=== PATIENT | female | born 1955 | race Caucasian/White ===

== ENCOUNTER 2024-11-26 15:24 | Emergency (ER) | payer OTHER, BC, SELFPAY ==
--- NOTE | 2024-11-26 15:30 | RT.EKG_ITS ---
APPROVED REPORT Exam: Resting ECG Reason for Exam: near syncope Patient Location: E HR:77 bpm ECG Measurements Heart Rate 77 AXIS AK 186 P 53 QRSd 89 QRS 72 QT 405 T 60 QTc 460 Conclusion Sinus rhythm...normal P axis, V-rate 60- 99 ST elevation, consider inferior injury...ST >0.08mV, II III aVF
[2024-11-26 15:37] VITALS: BP 80/50; PULSE 60; RESP 12; O2SAT 96
--- NOTE | 2024-11-26 16:00 | DI.RAD_ITS ---
Exam(s) XR WRIST LT COMPLETE EXAM: XR WRIST LT COMPLETE CLINICAL HISTORY: pain s/p fall. TECHNIQUE: 2D digital imaging was performed. Three views. COMPARISON: No exams were available for comparison FINDINGS: BONES: Comminuted fracture of the distal radius. Some impaction and dorsal angulation. Probable extension to the articular surface. Nondisplaced fracture of the distal ulna. No bony destructive lesion is seen. JOINTS: The carpal bones are normally aligned. Advanced degenerative changes of the first carpometacarpal joint. SOFT TISSUE: Swelling. IMPRESSION: Comminuted distal radial fracture and distal ulnar fracture. DATA REPOSITORY: RADIATION DOSE DELIVERED:
--- NOTE | 2024-11-26 16:00 | DI.RAD_ITS ---
Exam(s) XR SHOULDER LT COMPLETE 2+V EXAM: XR SHOULDER LT COMPLETE 2+V CLINICAL HISTORY: pain s/p fall. TECHNIQUE: 2D digital imaging was performed. Three views. COMPARISON: No exams were available for comparison FINDINGS: BONES: No acute fracture is present. No bony destructive lesion is seen. JOINTS: No dislocation present.Mild degenerative changes of the acromioclavicular joint. SOFT TISSUE: Normal. IMPRESSION: No acute abnormality. DATA REPOSITORY: RADIATION DOSE DELIVERED:
--- NOTE | 2024-11-26 16:07 | W.ED.GENAD ---
Discharge Plan Disposition Patient Disposition: Home Condition: Stable Discharge Details Clinical Impression: Left wrist fracture, Contusion of shoulder, left Primary Care Provider: Ewa,Local ED Provider: Leodan Lee Home Meds and New Rx's Prescriptions: Continued omeprazole 40 mg capsule,delayed release(DR/EC) 40 mg PO DAILY escitalopram oxalate 10 mg tablet 10 mg PO DAILY lisinopril 20 mg tablet 20 mg PO DAILY hydrochlorothiazide 25 mg tablet 25 mg PO DAILY levothyroxine 112 mcg capsule 112 mcg PO DAILY bupropion HCl 300 mg tablet extended release 24 hr 300 mg PO QAM fluorometholone 0.1 % drops,suspension 1 drp ophthalmic (eye) Q6H fluticasone propionate 50 mcg/actuation spray,suspension 1 spray intranasal DAILY Rx Instructions: administer into each nostril folic acid 1 mg tablet 1 mg PO DAILY methotrexate 2.5 mg/mL solution 2.5 mg PO QWEEK multivitamin [Multiple Vitamins] Tablet 1 tab PO DAILY cholecalciferol (vitamin D3) 125 mcg (5,000 unit) capsule 125 mcg PO DAILY magnesium chloride 64 mg tablet,delayed release (DR/EC) 64 mg PO DAILY oxybutynin chloride 5 mg/5 mL syrup 5 mg PO DAILY Discharge Instructions Additional Instructions: You have a fracture dislocation that was partially reduced. Call orthopedics tomorrow to arrange for a follow-up appointment. You can take 1000 mg of acetaminophen and 600 mg of ibuprofen every 6 hours as needed. If needed you can take the morphine. if you feel more ill, or have severe worsening pain return to the emergency department for reevaluation. Referrals: Donato Blanton MD [ [facility] STAFF PHYSICIAN, Orthopaedic Surgical] [facility] Mode of arrival: ambulatory. Date/Time Provider Initiated Documentation: 11/26/24 15:40. Limitations to Documentation: no limitations. Information obtained by: patient. History of Present Illness 69 year old F presents to the emergency department with the chief complaint of left wrist pain s/p fall, described as moderate, Quality is described as aching, Patient started experiencing this hour(s) (1) and it has been constant. No relieving factors improve symptom(s), No exacerbating factors reported . Patient notes denies chest pain and shortness of breath. Patient did receive the following treatments prior to arrival, none Related Data Home Medications ?Medication ?Instructions ?Recorded ?Confirmed bupropion HCl 300 mg 24 hr tablet, 300 mg PO QAM 07/31/24 07/31/24 extended release cholecalciferol (vitamin D3) 125 125 mcg PO DAILY 07/31/24 07/31/24 mcg (5,000 unit) capsule escitalopram oxalate 10 mg tablet 10 mg PO DAILY 07/31/24 07/31/24 fluorometholone 0.1 % eye 1 drp ophthalmic (eye) Q6H 07/31/24 07/31/24 drops,suspension fluticasone propionate 50 1 spray intranasal DAILY 07/31/24 07/31/24 mcg/actuation nasal spray,suspension folic acid 1 mg tablet 1 mg PO DAILY 07/31/24 07/31/24 hydrochlorothiazide 25 mg tablet 25 mg PO DAILY 07/31/24 07/31/24 levothyroxine 112 mcg capsule 112 mcg PO DAILY 07/31/24 07/31/24 lisinopril 20 mg tablet 20 mg PO DAILY 07/31/24 07/31/24 magnesium chloride 64 mg 64 mg PO DAILY 07/31/24 07/31/24 (magnesium chloride) tablet,delayed release methotrexate 2.5 mg/mL oral 2.5 mg PO QWEEK 07/31/24 07/31/24 solution multivitamin (Multiple Vitamins 1 tab PO DAILY 07/31/24 07/31/24 tablet) omeprazole 40 mg capsule,delayed 40 mg PO DAILY 07/31/24 07/31/24 release oxybutynin chloride 5 mg/5 mL oral 5 mg PO DAILY 07/31/24 07/31/24 syrup Allergies Allergy/AdvReac Type Severity Reaction Status Date / Time amoxicillin (From Augmentin) Allergy Mild Unknown Verified 07/31/24 12:22 clavulanic acid (From Allergy Mild Unknown Verified 07/31/24 12:22 Augmentin) fluconazole (From Diflucan) Allergy Swelling/Ed Verified 07/31/24 12:22 stacey Sulfa (Sulfonamide Allergy Swelling/Ed Verified 07/31/24 12:22 Antibiotics) stacey General Stated Complaint: Orthopedic NICK: 3 Review of Systems All systems reviewed & are unremarkable except as noted in HPI and below Constitutional Constitutional: Denies chills, Denies fever(s) and Denies weakness Cardiovascular Cardiovascular: Denies chest pain and Denies dyspnea Respiratory Respiratory: Denies dyspnea Gastrointestinal Gastrointestinal: Denies abdominal pain and Denies vomiting Neurologic Neurologic: Denies weakness Exam Const Orientation: alert [facility] Head: normal to inspection Ears: external ears normal General nose exam: external nose normal Mouth: moist mucous membranes Eyes General: appearance normal, both eyes and all related structures Neck Neck: normal visual inspection Resp Effort & Inspection: normal respiratory effort and able to speak in complete sentences Cardio Rate: regular rate Skin General skin exam: no rashes or lesions noted Neuro General: patient alert and patient oriented x3 Extrem General: capillary refill normal Psych Mental Status: mental status grossly normal Course Vital Signs Vital signs: Vital Signs Pulse 60 11/26/24 15:37 Respiratory Rate 12 11/26/24 15:37 Blood Pressure 80/50 L 11/26/24 15:37 Pulse Oximetry 96 11/26/24 15:37 Pulse 60 11/26/24 15:37 Respiratory Rate 12 11/26/24 15:37 Blood Pressure 80/50 L 11/26/24 15:37 Blood Pressure Position Sitting 11/26/24 15:37 Pulse Oximetry 96 11/26/24 15:37 Oxygen Delivery Method Room Air 11/26/24 15:37 Oxygen Flow Rate 0 11/26/24 15:37 Procedure Fracture Reduction Fracture #1: Patient Consented: Verbally Side: left Fracture Reduction Location: ulna Analgesia: hematoma block (10cc 1% lidocaine) Technique: direct manipulation and traction/counter-traction Post Reduction X-rays Demonstrate: acceptable reduction Post-Reduction Neuro Exam: intact Post-Reduction Vascular Exam: intact Splint Applied: Yes Patient Tolerated Procedure: well Medical Decision Making 69-year-old female with a history of uveitis, hypertension who comes in 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 Denies hitting her head or loss of consciousness and denies any preceding symptoms in the fall. Patient has left wrist and left shoulder pain. Denies any headache, neck pain, back pain, chest or abdomen pain. She has a deformity of the left wrist. She is able to move her fingers with intact sensation and cap refill. She has no tenderness in the forearm, elbow or distal mid humerus. She has tenderness over the anterior shoulder. There is no visible or palpable deformity of the shoulder. No midline C-spine tenderness no signs of trauma to the head, GCS of 15. Her blood pressure on my exam is 118/72, she did have initial blood pressure of 80 which could have been vasovagal from her pain. Will monitor and obtain x-rays of her left shoulder and left wrist. Patient has a fracture dislocation. I placed a hematoma block using 10 cc of 1% lidocaine which she tolerated without complications. Skin was cleaned with chlorhexidine prior to inserting the needle. She had marked reduction in her pain with this. I was able to put her fingers in a fingertrap and apply weight for traction and felt it was more aligned so was placed in a sugar-tong splint. Intact CSM T's. Postreduction x-ray shows improved reduction but still has some dorsal displacement. She is stable for discharge and will follow-up with orthopedics, return precautions given. Differential Diagnosis Differential Diagnosis: Fracture, sprain, contusion ECG Data Attestation: I personally reviewed and interpreted this ECG (s) as follows: Prior ECG tracings: not available for review Interpretation: Sinus rhythm, rate of 77, [place] 186, no STEMI PFSH All Active Problems (Updated 11/26/24 @ 19:17 by Leodan Lee MD) Contusion of shoulder, left (Acute) Left wrist fracture (Acute) Social History Smoking risk assessment performed?: No
[2024-11-26] MEDS: Normal Saline 1,000 ML 1000 ML IV (16:37)
[2024-11-26] MEDS: HYDROmorphone 2 MG/ML SYR 1 MG IVP (16:42)
[2024-11-26] MEDS: HYDROmorphone 2 MG/ML SYR (17:55)
--- NOTE | 2024-11-26 18:00 | DI.RAD_ITS ---
Exam(s) XR WRIST LT LIMITED EXAM: XR WRIST LT LIMITED INDICATION: s/p closed reduction attempt. COMPARISON: CR XR WRIST LT COMPLETE from 11/26/2024 TECHNIQUE: 2D digital imaging was performed. Two views. FINDINGS: A cast has been placed which somewhat obscures the underlying bony detail. There has been some correction of the previously noted dorsal angulation of the comminuted distal radial fracture. The ulnar styloid fractures unchanged. Carpal alignment remains normal. DATA REPOSITORY: RADIATION DOSE DELIVERED:
[2024-11-26] MEDS: MORPHine IR 15 MG TAB, 4 TABS/BTL PO (19:46)
== END 2024-11-26 20:03 | disposition home or self-care (01) ==
PROVIDERS: Emergency Provider Emergency Medicine
DX: S62.102A Fracture of unspecified carpal bone, left wrist, initial encounter for closed fracture (principal); S40.012A Contusion of left shoulder, initial encounter; W03.XXXA Other fall on same level due to collision with another person, initial encounter
CPT/HCPCS: 25535; 36415; 93005; 96360; 99284; 73030; 73100; 73110; 93010; J1171

== ENCOUNTER 2024-12-02 15:43 | Outpatient (CLI) | payer OTHER, BC, SELFPAY ==
--- NOTE | 2024-12-02 13:00 | DI.RAD_ITS ---
Exam(s) XR WRIST LT LIMITED EXAM: XR WRIST LT LIMITED CLINICAL HISTORY: LEFT WRIST FX. TECHNIQUE: 2D digital imaging was performed of the left wrist. Two images were obtained. Scaphoid, PA, oblique and lateral views were obtained. COMPARISON: CR XR WRIST LT LIMITED from 11/26/2024 CR XR WRIST LT COMPLETE from 11/26/2024 FINDINGS: BONES: There has been no significant change in alignment of the distal radial and ulnar fractures. No bony destructive lesion is seen. JOINTS: The carpal bones are normally aligned. SOFT TISSUE: The patient's wrist is in a cast. IMPRESSION: Stable distal left ulnar and radial fractures. DATA REPOSITORY: RADIATION DOSE DELIVERED:
== END 2024-12-02 15:44 | disposition home or self-care (01) ==
LOC: DIORS 15:43
PROVIDERS: Visit Provider Student in an Organized Health Care Education/Training Program
DX: S62.102A Fracture of unspecified carpal bone, left wrist, initial encounter for closed fracture (principal)
CPT/HCPCS: 73100

== ENCOUNTER 2024-12-03 12:16 | Day surgery (SDC) | payer OTHER, BC, SELFPAY ==
[2024-12-03] VITALS (12 sets, daily range): BP systolic 114–129; BP diastolic 65–104; PULSE 57–77; RESP 12–17; TEMP 36.4–37; O2SAT 80–100; BMI 25.3
[2024-12-03] MEDS: Lactated Ringers 1,000 ML 80 ML IV (13:02)
[2024-12-03] MEDS: Acetaminophen 500 MG TAB 1000 MG PO (13:04)
[2024-12-03] MEDS: Celecoxib 200 MG CAP 400 MG PO (13:04)
--- NOTE | 2024-12-03 13:12 | W.ANESPRE ---
General Info Date of Service Date Performed: 12/03/24 Height: 5 ft 4 in Weight: 66.9 kg Body Mass Index (BMI): 25.3 Surgical Procedure: Operation Date: 12/03/24 15:25 Proposed Procedure Side Surgeon p Wrist ORIF Distal Radius Left Raymond Wong MD Meds Allergies and Home Medications Allergies Allergy/AdvReac Type Severity Reaction Status Date / Time amoxicillin (From Augmentin) Allergy Mild Unknown Verified 12/03/24 12:36 clavulanic acid (From Allergy Mild Unknown Verified 12/03/24 12:36 Augmentin) fluconazole (From Diflucan) Allergy Swelling/Ed Verified 12/03/24 12:36 stacey Sulfa (Sulfonamide Allergy Swelling/Ed Verified 12/03/24 12:36 Antibiotics) stacey Home Medication ?Medication ?Instructions ?Recorded bupropion HCl 300 mg 24 hr tablet, 300 mg PO QAM 07/31/24 extended release cholecalciferol (vitamin D3) 125 125 mcg PO DAILY 07/31/24 mcg (5,000 unit) capsule escitalopram oxalate 10 mg tablet 10 mg PO DAILY 07/31/24 fluorometholone 0.1 % eye 1 drp ophthalmic (eye) Q6H 07/31/24 drops,suspension fluticasone propionate 50 1 spray intranasal DAILY 07/31/24 mcg/actuation nasal spray,suspension folic acid 1 mg tablet 1 mg PO DAILY 07/31/24 hydrochlorothiazide 25 mg tablet 25 mg PO DAILY 07/31/24 levothyroxine 112 mcg capsule 112 mcg PO DAILY 07/31/24 lisinopril 20 mg tablet 20 mg PO DAILY 07/31/24 magnesium chloride 64 mg 64 mg PO DAILY 07/31/24 (magnesium chloride) tablet,delayed release methotrexate 2.5 mg/mL oral 2.5 mg PO QWEEK 07/31/24 solution multivitamin (Multiple Vitamins 1 tab PO DAILY 07/31/24 tablet) omeprazole 40 mg capsule,delayed 40 mg PO DAILY 07/31/24 release calcium 600 mg capsule 600 mg PO DAILY 12/02/24 melatonin 3 mg tablet 1.5 mg PO HS PRN 12/02/24 Current Visit Medications: Current Medications Generic Name Dose Route Start Last Admin Trade Name Freq PRN Reason Stop Dose Admin Acetaminophen 1,000 mg 12/03/24 06:00 12/03/24 13:04 Acetaminophen 500 Mg Tab PO 12/03/24 23:59 1,000 mg PREOP GEMINI Administration Celecoxib 400 mg 12/03/24 06:00 12/03/24 13:04 Celecoxib 200 Mg Cap PO 12/03/24 23:59 400 mg PREOP GEMINI Administration Ringer's Solution 1,000 mls @ 80 mls/hr 12/03/24 06:00 12/03/24 13:02 IV 12/03/24 23:59 80 mls/hr INFUSION GEMINI Administration Cefazolin Sodium/Dextrose 2 gm in 50 mls @ 100 mls/hr 12/03/24 06:00 Ancef Duplex IVPB 12/03/24 23:59 PREOP GEMINI Tranexamic Acid/Sodium Chloride 1,000 mg in 100 mls @ 600 mls/hr 12/03/24 06:00 IVPB 12/03/24 23:59 PREOP GEMINI IV Miscellaneous Supplies 1 each 12/03/24 06:00 Iv Access IV 12/03/24 23:59 DIRECTED GEMINI Sodium Chloride 0 ml 12/03/24 06:00 Normal Saline Flush 10 Ml Syr IV 12/03/24 23:59 PRN PRN Sodium Chloride 0 ml 12/03/24 06:00 Normal Saline 10 Ml Vial IJ 12/03/24 23:59 DIRECTED PRN Sterile Water 0 ml 12/03/24 06:00 Water,Injection,Sterile 10 Ml Vial IJ 12/03/24 23:59 DIRECTED PRN PFSH Active Problems Active Problems: Problem Status Onset Code Contusion of shoulder, left Acute S40.012A Left wrist fracture Acute S62.102A Medical History Medical History Constipation Uveitis Incontinence Depression Hypothyroidism GERD (gastroesophageal reflux disease) Hx of vertigo HTN (hypertension) Surgical History Surgical History Hx of detached retina repair Hx of cataract surgery History of [facility] Tobacco Smoking/Tobacco Use Status: Never Passive smoking exposure: Yes Alcohol Alcohol Intake: current Alcohol intake frequency: a few times a week Alcohol type: hard liquor Substance Use Substance use: Never Substance use type: does not use Vital Signs and Lab Results Vital Signs Most Recent Vital Signs in EMR: Most Recent Vital Signs Temp Pulse Resp BP Pulse Ox 37.0 C 74 12 129/83 100 12/03/24 12:43 12/03/24 12:43 12/03/24 12:43 12/03/24 12:43 12/03/24 12:43 Anesthesia Assessment and Plan Anesthesia History Personal History: No History of Anesthesia Complications Family History: No Family History of Anesthesia Complications Exercise Tolerance Exercise Tolerance: Metabolic Equivalents>4 Pertinent Negatives Pertinent Negatives: No Symptoms of GERD, No Major Cardiovascular Symptoms or Complaints and No History of CVA/TIA Cardiac & Pulmonary Exam Cardiac Exam: Normal S1/S2 Heart Sounds Pulmonary Exam: Clear Bilateral Breath Sounds Implantable Cardiac Device Does patient have a Pacemaker or an ICD?: No Airway Exam Known Difficult Airway: No Mallampati Class: 2 Mouth Opening: Normal (> 3cm) Thyromental Distance: Less than 3 cm Neck Range of Motion: Full ROM Neck Circumference: Normal Teeth Condition: Normal Dentition ASA Classification ASA Score: ASA 2 Emergency Case?: No NPO Status NPO Status: NPO Clears >2 hours, Solids >8 hours Anesthesia Plan Resuscitation Status: Full Code Anesthesia Technique: General Anesthesia Airway Planned: Endotracheal Tube Monitors Used: Standard Monitors
--- NOTE | 2024-12-03 13:56 | W.PM.DSUDISC ---
Date of service: 12/03/24 Discharge Plan Disposition Patient Disposition: Home Condition: Good Discharge Details Reason For Visit: Left distal radius fracture Attending Provider: Raymond Wong Primary Care Provider: ,Local Home Meds and New Rx's Prescriptions: New acetaminophen 500 mg tablet 500 mg PO Q6H PRN (Reason: pain) Qty: 60 2RF oxycodone 5 mg tablet 5 mg PO Q6H PRNQty: 8 0RF Rx Instructions: Take one tablet up to every 6 hours as needed for severe postoperative pain Continued omeprazole 40 mg capsule,delayed release(DR/EC) 40 mg PO DAILY escitalopram oxalate 10 mg tablet 10 mg PO DAILY lisinopril 20 mg tablet 20 mg PO DAILY hydrochlorothiazide 25 mg tablet 25 mg PO DAILY levothyroxine 112 mcg capsule 112 mcg PO DAILY bupropion HCl 300 mg tablet extended release 24 hr 300 mg PO QAM fluorometholone 0.1 % drops,suspension 1 drp ophthalmic (eye) Q6H fluticasone propionate 50 mcg/actuation spray,suspension 1 spray intranasal DAILY Rx Instructions: administer into each nostril folic acid 1 mg tablet 1 mg PO DAILY methotrexate 2.5 mg/mL solution 2.5 mg PO QWEEK multivitamin [Multiple Vitamins] Tablet 1 tab PO DAILY cholecalciferol (vitamin D3) 125 mcg (5,000 unit) capsule 125 mcg PO DAILY magnesium chloride 64 mg tablet,delayed release (DR/EC) 64 mg PO DAILY calcium 600 mg capsule 600 mg PO DAILY melatonin 3 mg tablet 1.5 mg PO HS PRN Discharge Instructions Additional Instructions: Wrist Fracture Fixation Discharge Instructions Activity: You should keep the hand/wrist elevated as much as possible for the first few days. You may use the other fingers as tolerated but avoid trying to do too much too soon. You may perform light activities with the splint in place. Dressing/Cast: Your splint should stay in place at all times. Do NOT get it wet. You may loosen the ROSARIO wrap if you feel it is too tight and then rewrap more loosely. Medications: - You should take Tylenol for baseline pain control. - You have been prescribed a stronger pain medication, Oxycodone, for breakthrough pain. - You may apply ice over the wrist, just double bag so it doesn't get wet. Follow-up: 10-14 days Referrals: Raymond Wong MD [ [facility] STAFF PHYSICIAN, Orthopaedic Surgical] Equipment/Supplies: Splint Activity:: Elevate Remove Dressings/Wound Care:: Do Not Remove Shower/Bathe:: Cover Diet:: As Tolerated Discharge Orders Discharge Orders: Discharge Order (Routine); Ordered 12/03/24 Ordered By: Vivian Edmondson
[2024-12-03] MEDS: ceFAZolin 2 GM/50 ML BAG IVPB (14:45)
[2024-12-03] MEDS: TRANEXAMIC ACID/SOD. CHL. 1,000 MG/100 ML BAG 600 MG IVPB (14:59)
[2024-12-03] MEDS: Bupivacaine 0.5% Pres-Free W/EPI 30 ML VIAL (15:44)
--- NOTE | 2024-12-03 16:18 | DI.RAD_ITS ---
Exam(s) XR WRIST LT LIMITED EXAM: XR WRIST LT LIMITED CLINICAL HISTORY: LEFT DISTAL RADIUS FRACTURE. TECHNIQUE: 2D digital imaging was performed. COMPARISON: Prior x-rays reviewed FINDINGS: Fluoroscopy was provided during ORIF left wrist fracture placement volar fixation plate across distal radius fracture site. See procedure report for details Total fluoroscopy time 1 minutes 6 seconds IMPRESSION: Radiation exposure index/cumulative dose:Ka,r= 0.3986 mGy DATA REPOSITORY: RADIATION DOSE DELIVERED:
--- NOTE | 2024-12-03 16:44 | ROE_ITS ---
Operative Note Operative Note PRE-OP DIAGNOSIS: Left Distal Radius Fracture POST-OP DIAGNOSIS: same PROCEDURE: Open Reduction and Internal Fixation of Left Distal Radius SURGEON: Raymond Wong MID LEVEL CLINICIAN: Vivian Edmondson ANESTHESIA TYPE: General LMA/ETT Refer to Anesthesia Record ESTIMATED BLOOD LOSS: 5 PATHOLOGY: none sent TOURNIQUET TIME: 40 COMPLICATIONS: None Patient was transported to: PACU Patient's condition: stable Indications: Ashtyn is a 69 year old female who I have seen for a distal radius fracture. Given the deformity, displacement, fracture pattern, and effect on daily function, I recommended surgical fixation. I reviewed the risk of the procedure to include bleeding, infection, pain, stiffness, damage to nerves and vessels, damage to muscles and tendons, malunion, nonunion, hardware prominence, tendon rupture, need for repeat procedures. Despite these risks, she patient elected to proceed. Findings: There is a distal radius fracture which had one primary epiphyseal fragment. It was reduced and fixed with a Synthes volar locking plate. Procedure Description: Ashtyn was greeted in the preoperative holding area. The correct patient and site was confirmed and marked. The history and physical was updated. The consent was reviewed the patient and signed. The patient was taken to the operating room and placed in the supine position. All bony problems were well- padded. The left arm was placed onto a radiolucent hand table. A nonsterile tourniquet was placed high up on the arm. Prophylactic antibiotics in the form of cefazolin were administered. The left arm was prepped with ChloraPrep and draped in a standard fashion. A timeout was performed for safe surgery. A standard longitudinal incision was made overlying the flexor carpi radialis tendon starting at the distal wrist crease and moving proximally. The skin was incised sharply. The flexor carpi radialis tendon and its sheath is identified. The sheath was opened. The tendon was moved ulnarly in the floor of the sheath was incised. Blunt dissection the flexor pollicis longus muscle belly and tendon were also made radially exposing the pronator quadratus and the distal radius. The printer quadratus was elevated with an ulnar-based flap. This exposed the volar distal radius and the fracture. A truong elevator was used for full exposure of the volar surface of the distal radius. The primary fracture line was exposed. Using a series of elevators, curettes, and knife, the fracture was fully debrided of any fibrous tissue and callus formation. I used a freer elevator to help mobilize the fragments. There is a primary extra-articular fracture line with some comminution of the distal fragment at the level of the fracture but no clear intra-articular extension. I then performed a closed reduction. Using gentle traction and fracture manipulation, this reduction was held. A single K wire was placed through the radial styloid into the distal aspect of the radial shaft. Fluoroscopic images were used to confirm adequate reduction. An appropriately sized Synthes volar locking plate was then placed onto the bony surface of the distal radius. Was then held there with a distal radius clamp sandwiching the plate to the distal segment. A single K wire was placed through the distal end. Fluoroscopy was once again used to confirm appropriate positioning of the plate on the distal radius. A single nonlocking screw was placed to the distal portion of the plate securing the plate against the bone of the distal radial metaphysis. Once again, the plate was evaluated to make sure it was aligned appropriately. The single screw was also checked to make sure it was in appropriate positioning for trajectory of future screws. The remainder of the screws within the volar locking plate were filled with locking screws. These were made sure not to penetrate the dorsal cortex. Fluoroscopy was utilized to confirm appropriate positioning of the distal end of the plate and the screws. There was some slight radial translation and loss of height. The proximal aspect the plate was reduced down to the bone and then further reduction was performed by pulling traction on the thumb and holding this in place with a 2.4 mm cortical screw. Fluoroscopy was then used against confirm appropriate reduction. Nonlocking screws were placed within the remaining 2 shaft holes. Final x-rays were obtained which demonstrated adequate reduction and positioning of hardware. The nonlocking screw placed in the distal and the plate was long and was replaced. The dorsal sunrise view was also obtained to ensure correct sizing of screws. The wound was then thoroughly irrigated. The pronator quadratus was reapproximated with a 2-0 Vicryl. The tourniquet was released and there was no notable vascular injury. The fingers were warm and well-perfused. The deep dermal layer was closed with a 2-0 Vicryl. The skin was closed with 4- 0 Monocryl in a buried, subcuticular fashion. The wound was dressed with skin glue, 4 x 4's, web roll. A short arm splint was applied. At the end the case all counts are correct. Patient was transferred back to the PACU in stable condition. Date of Procedure: 12/03/24
--- NOTE | 2024-12-03 16:49 | W.ANESPOSTOP ---
Postoperative Evaluation Date, Time and Location Date Performed: 12/03/24 Time Performed: 16:49 Patient Location: Day Surgery Unit Vital Signs Most Recent Imported Vital Signs: Most Recent Vital Signs Temp Pulse Resp BP Pulse Ox 36.5 C 60 14 115/104 H 95 12/03/24 16:27 12/03/24 16:27 12/03/24 16:27 12/03/24 16:27 12/03/24 16:27 Pain Score Most Recent Pain Score: Most Recent Pain Score Pain Level 3 12/03/24 16:27 Assessment Mental Status: Awake (Alert & Oriented to Patient Baseline) Airway and Respiratory Function: Patent airway with normal (patient baseline) respiratory exam Cardiovascular Function: Hemodynamically Stable Hydration Status: Adequately Hydrated Nausea & Vomiting: No Nausea or Vomiting Pain: Pt. Denies Any Pain Peripheral Nerve Block: Patient did not receive a nerve block
== END 2024-12-03 17:28 | disposition home or self-care (01) ==
PROVIDERS: Visit Provider Student in an Organized Health Care Education/Training Program
PROC: (CPT 25607; principal; 2024-12-03 15:15)
DX: S52.552A Other extraarticular fracture of lower end of left radius, initial encounter for closed fracture (principal); I10 Essential (primary) hypertension; E03.9 Hypothyroidism, unspecified; K21.9 Gastro-esophageal reflux disease without esophagitis
CPT/HCPCS: 25607; 76000; 73100; J0690; J1100; J2003; J2405; J2704; J3010

== ENCOUNTER 2024-12-16 16:07 | Outpatient (CLI) | payer BC, SELFPAY ==
--- NOTE | 2024-12-16 10:30 | DI.RAD_ITS ---
Exam(s) XR WRIST LT COMPLETE EXAM: XR WRIST LT COMPLETE CLINICAL HISTORY: S/P ORIF L WRIST. TECHNIQUE: 2D digital imaging was performed. COMPARISON: CR XR WRIST LT LIMITED from 12/02/2024 CR XR WRIST LT LIMITED from 12/03/2024 FINDINGS: 3 views Again noted is a volar fixation plate across the distal radial fracture site, this appearing unchanged from intraoperative fluoroscopic images of 12/03/2024. No further displacement nor significant ulnar variance. No hardware migration. No osteomyelitis. Fractures in the adjacent distal ulna again noted and appear unchanged. IMPRESSION: Stable satisfactory appearance DATA REPOSITORY: RADIATION DOSE DELIVERED:
--- NOTE | 2024-12-16 10:30 | DI.RAD_ITS ---
Exam(s) XR ELBOW LT COMPLETE EXAM: XR ELBOW LT COMPLETE CLINICAL HISTORY: eval L elbow pain. TECHNIQUE: 2D digital imaging was performed. Three views. COMPARISON: No exams were available for comparison FINDINGS: BONES: No acute fracture is present. No bony destructive lesion is seen. JOINTS: The elbow is normally aligned. No joint effusion is seen. Mild spurring at the coronoid process. SOFT TISSUE: Normal. IMPRESSION: Mild degenerative changes. DATA REPOSITORY: RADIATION DOSE DELIVERED:
== END 2024-12-16 16:08 | disposition home or self-care (01) ==
LOC: DIORS 16:07
PROVIDERS: Visit Provider Student in an Organized Health Care Education/Training Program
DX: S62.102A Fracture of unspecified carpal bone, left wrist, initial encounter for closed fracture (principal); M25.522 Pain in left elbow; M19.021 Primary osteoarthritis, right elbow
CPT/HCPCS: 73080; 73110

== ENCOUNTER 2025-01-27 12:19 | Outpatient (CLI) | payer BC, SELFPAY ==
--- NOTE | 2025-01-27 10:30 | DI.RAD_ITS ---
Exam(s) XR WRIST LT COMPLETE EXAM: XR WRIST LT COMPLETE CLINICAL HISTORY: F/U L WRIST. TECHNIQUE: 2D digital imaging was performed of the left wrist. Three images were obtained. PA, oblique and lateral views were obtained. COMPARISON: CR XR WRIST LT COMPLETE from 12/16/2024 FINDINGS: BONES: There has been significant healing of the left radial fracture. There is again seen a sideplate and screws transfixing the fracture. There has been complete healing of the distal ulnar fracture. The bones are osteopenic suggesting decreased use. No bony destructive lesion is seen. JOINTS: The carpal bones are normally aligned. There are marked degenerative changes seen at the 1st CMC joint. SOFT TISSUE: Normal. IMPRESSION: No change in alignment of the healing distal left radial and ulnar fractures. DATA REPOSITORY: RADIATION DOSE DELIVERED:
== END 2025-01-27 12:20 | disposition home or self-care (01) ==
LOC: DIORS 12:19
PROVIDERS: Visit Provider Student in an Organized Health Care Education/Training Program
DX: S62.102A Fracture of unspecified carpal bone, left wrist, initial encounter for closed fracture (principal)
CPT/HCPCS: 73110

== ENCOUNTER 2025-03-10 12:58 | Outpatient (CLI) | payer BC, SELFPAY ==
--- NOTE | 2025-03-10 10:30 | DI.RAD_ITS ---
Exam(s) XR WRIST LT LIMITED EXAM: XR WRIST LT LIMITED CLINICAL HISTORY: S/P ORIF L WRIST. TECHNIQUE: 2D digital imaging was performed. Two images were obtained. PA and lateral views were obtained. COMPARISON: CR XR WRIST LT COMPLETE from 11/26/2024 CR XR WRIST LT LIMITED from 11/26/2024 CR XR WRIST LT COMPLETE from 01/27/2025 FINDINGS: BONES: There are stable post operative changes of internal fixation of the distal left radial fracture present. The fracture appears to be well healed. No new fracture or dislocation. JOINTS: There are marked degenerative changes seen at the 1st CMC joint characterized by joint space narrowing and osteophytes. SOFT TISSUE: Normal. IMPRESSION: Stable alignment of the healed distal left radial fracture. DATA REPOSITORY: RADIATION DOSE DELIVERED:
== END 2025-03-10 12:59 | disposition home or self-care (01) ==
LOC: DIORS 12:58
PROVIDERS: Visit Provider Student in an Organized Health Care Education/Training Program
DX: S62.102A Fracture of unspecified carpal bone, left wrist, initial encounter for closed fracture (principal)
CPT/HCPCS: 73100